=== PATIENT | female | born 2000 | race Two or more races ===

== ENCOUNTER 2020-04-08 17:55 | Inpatient (IN) | payer SELFPAY ==
[~2020-04-08] VITALS: Ht 167.6 cm; Wt 85.5 kg
[2020-04-08] MEDS ORDERED: IV NORMAL SALINE 1000ML BAG 1,000 ML IV SCH (18:03)
--- NOTE | 2020-04-08 18:18 | PHYS DOC ---
General Adult EDM: Chief Complaint: ABDOMINAL PAIN HPI: HPI: Patient is a 20 year old female who presents with 3 days of umbilical abdominal pain that is sharp. States she is also been running a fever off-and-on and taking Tylenol. She last took Tylenol at 1400 today at thousand milligrams. She states the highest her temperature is gone is 101. States she is also having watery diarrhea. She denies seeing blood in her diarrhea. Patient denies vomiting, cough, chest pain, shortness of air, dizziness, syncope, focal weakness, vision changes, numbness or tingling. Currently rates her sharp nonradiating pain a 7 out of 10. She was seen in urgent care prior to coming and they told her to come to the emergency room to be evaluated for appendicitis. Review of Systems: Review of Systems: Constitutional: fever or chills. [] Eyes: Denies change in visual acuity. [] HENT: Denies nasal congestion or sore throat. [] Respiratory: Denies cough or shortness of breath. [] Cardiovascular: Denies chest pain or edema. [] GI: abdominal pain, denies nausea, vomiting, bloody stools. +diarrhea. [] : Denies dysuria. [] Musculoskeletal: Denies back pain or joint pain. [] Integument: Denies rash. [] Neurologic: Denies headache, focal weakness or sensory changes. [] Endocrine: Denies polyuria or polydipsia. [] Lymphatic: Denies swollen glands. [] Psychiatric: Denies depression or anxiety. [] Heart Score: Risk Factors: Risk Factors: DM, Current or recent (<one month) smoker, HTN, HLP, family history of CAD, obesity. Risk Scores: Score 0 - 3: 2.5% MACE over next 6 weeks - Discharge Home Score 4 - 6: 20.3% MACE over next 6 weeks - Admit for Clinical Observation Score 7 - 10: 72.7% MACE over next 6 weeks - Early Invasive Strategies Current Medications: Current Medications Medications (Trade) Dose Ordered Sig/Jef Start Time Stop Time Status Last Admin Dose Admin Sodium Chloride 1,000 ml @ 1,000 mls/hr Q1H 04/08/20 18:03 04/08/20 19:02 UNV Physical Exam: PE: Constitutional: Well developed, well nourished, no acute distress, non-toxic appearance. [] HENT: Normocephalic, atraumatic, bilateral external ears normal, oropharynx moist, no oral exudates, nose normal. [] Eyes: PERRLA, EOMI, conjunctiva normal, no discharge. [] Neck: Normal range of motion, no tenderness, supple, no stridor. [] Cardiovascular:Heart rate regular rhythm, no murmur [] Lungs & Thorax: Bilateral breath sounds clear to auscultation [] Abdomen: Bowel sounds normal, soft, umbilical tenderness, no masses, no pulsatile masses. [] Skin: Warm, dry, no erythema, no rash. [] Back: No tenderness, no CVA tenderness. [] Extremities: No tenderness, no cyanosis, no clubbing, ROM intact, no edema. [] Neurologic: Alert and oriented X 3, normal motor function, normal sensory function, no focal deficits noted. [] Psychologic: Affect normal, judgement normal, mood normal. [] EKG: EKG: [] Radiology/Procedures: Radiology/Procedures: [] Impression: [facility] [address] [place] [address] IMAGING REPORT Signed PATIENT: JONI WYMAN MACCOUNT: [id number] : 2000 LOCATION: ER AGE: 20 SEX: F EXAM STATUS: REG ER ORD. PHYSICIAN: HIREN ALVARADO APRN REASON: diarrhea, abdominal pain PROCEDURE: CT ABD PELV W/ IV CONTRST ONLY EXAM: CT Abdomen and Pelvis with IV contrast CLINICAL HISTORY: diarrhea, abdominal pain COMPARISON: none TECHNIQUE: Helical CT of the abdomen and pelvis was performed following the administration of IV contrast. Axial, coronal and sagittal reformatted images were generated. ---PQRS compliance statement - One or more of the following individualized dose reduction techniques were utilized for this study: 1. Automated exposure control 2. Adjustment of the mA and/or kV according to patient size 3. Use of iterative reconstruction technique--- FINDINGS: Lower chest: Linear opacities right greater than left lower lobes likely scarring/atelectasis. Abdomen and pelvis: Liver and biliary system: No focal liver lesion. Gallbladder is normal. No biliary ductal dilatation. Spleen: Unremarkable Pancreas: Unremarkable Adrenal glands: Unremarkable Kidneys: Symmetric nephrograms. No focal renal lesion. No hydronephrosis. No hydroureter. Lymph nodes/retroperitoneum: No abdominal or pelvic lymphadenopathy. Vessels: Aorta is grossly normal in caliber. Bowel/Peritoneal cavity: No bowel obstruction. There is moderate thickening of several loops of small bowel in the left lower quadrant as well as the sigmoid colon with associated inflammatory changes in the pelvis. These inflammatory changes appear to be centered more caudally in the peritoneal cavity, in the pelvis. IUD is low, tip is likely extending through the internal/external cervical os. The ovaries are not well delineated given associated inflammatory change and pelvic ascites. Appendix measures 6 mm in size. Abdominal wall: Unremarkable Bladder: Partially distended bladder is grossly unremarkable. Bones: No aggressive osseous lesion is seen. Degenerative changes of spine are seen. IMPRESSION: 1. Extensive inflammatory changes are seen within the pelvis with associated thickening of several loops of small bowel and colon within the pelvis. Etiology is unclear and enteritis/colitis are considerations. In addition, given the relatively low appearance of the inflammatory changes, pelvic inflammatory disease is also a primary consideration. The appendix is upper limits normal in caliber although early appendicitis cannot be entirely excluded. 2. The IUD is low, appears to extend through the internal and external cervical os. Electronically signed by: Milton Adams MD (04/08/2020 7:45 PM) [facility] DICTATED and SIGNED BY: MILTON ADAMS MD DATE: 04/08/201944 Course & Med Decision Making: Course & Med Decision Making Pertinent Labs and Imaging studies reviewed. (See chart for details) Umbilical abdominal tenderness but otherwise abdomen is soft. Alert and oriented x4. Ambulatory with steady gait. Skin pink warm and dry. Speaks in full complete sentences. Nothing makes the pain worse or better. IMPRESSION: 1. Extensive inflammatory changes are seen within the pelvis with associated thickening of several loops of small bowel and colon within the pelvis. Etiology is unclear and enteritis/colitis are considerations. In addition, given the relatively low appearance of the inflammatory changes, pelvic inflammatory disease is also a primary consideration. The appendix is upper limits normal in caliber although early appendicitis cannot be entirely excluded. 2. The IUD is low, appears to extend through the internal and external cervical os. Patient has a white count of 18.5. I have started Zosyn on the patient. I have Spoken to Dr Dyer to let him know about CT findings. I will consult GI. Patient admitted to Dr Stacy [] Ana Disclaimer: Ana Disclaimer: This electronic medical record was generated, in whole or in part, using a voice recognition dictation system. Departure Departure Impression: Primary Impression: Colitis Disposition: 09 ADMITTED INPATIENT Admitting Physician: MANNY Condition: STABLE Justicifation of Admission Dx: Justifications for Admission: Justification of Admission Dx: Yes Comments: colitis HIREN ALVARADO TOP LIFTER Apr 08, 2020 18:18
[2020-04-08 18:34] LABS: BASO # 0.1 x10^3/uL (0.0-0.2); BASO % 0 % (0-3); EOS # 0.2 x10^3/uL (0.0-0.7); EOS % 1 % (0-3); HEMATOCRIT 44.3 % (36.0-47.0); LYMPH # 1.5 x10^3/uL (1.0-4.8); LYMPH % 8 % (24-48); MEAN CORPUSCULAR HEMOGLOBIN 29 pg (25-35); MEAN CORPUSCULAR HGB CONC 34 g/dL (31-37); MEAN CORPUSCULAR VOLUME 87 fL (79-100); MONO # 0.9 x10^3/uL (0.0-1.1); MONO % 5 % (0-9); NEUT # 15.7 x10^3/uL (1.8-7.7); NEUT % 86 % (31-73); PLATELET COUNT 353 x10^3/uL (140-400); RED BLOOD COUNT 5.11 x10^6/uL (3.50-5.40); RED CELL DISTRIBUTION WIDTH 14.1 % (11.5-14.5); WHITE BLOOD COUNT 18.3 x10^3/uL (4.0-11.0)
[2020-04-08 18:38] LABS: BILIRUBIN,URINE SMALL (NEG); CLARITY,URINE CLEAR; NITRITE,URINE NEGATIVE (NEG); PROTEIN,URINE 100 mg/dL (NEG-TRACE); UROBILINOGEN,URINE 0.2 mg/dL (0.2 mg/dL)
[2020-04-08 18:44] LABS: PROTHROMBIN TIME PATIENT 13.2 SEC (11.7-14.0)
[2020-04-08 18:48] LABS: BACTERIA,URINE MANY /HPF (0-FEW); COLOR,URINE DK YELLOW; SQUAMOUS EPITHELIAL CELL,UR MANY /LPF
[2020-04-08 18:49] LABS: RBC,URINE 0 /HPF (0-2)
[2020-04-08 18:52] LABS: CALCIUM 9.7 mg/dL (8.5-10.1); CREATININE 0.6 mg/dL (0.6-1.0); GFR 126.2; POTASSIUM 3.9 mmol/L (3.5-5.1)
[2020-04-08 18:56] LABS: ALBUMIN 3.7 g/dL (3.4-5.0); ALBUMIN/GLOBULIN RATIO 0.7 (1.0-1.7); TOTAL BILIRUBIN 0.5 mg/dL (0.2-1.0); TOTAL PROTEIN 8.7 g/dL (6.4-8.2)
[2020-04-08 19:05] LABS: AMPHETAMINE/METHAMPHETAMINE NEG (NEG); BARBITURATES NEG (NEG); BENZODIAZEPINES NEG (NEG); CANNABINOIDS NEG (NEG); COCAINE NEG (NEG); METHADONE NEG (NEG); OPIATES NEG (NEG); PHENCYCLIDINE NEG (NEG)
[2020-04-08] MEDS ORDERED: IOHEXOL 300 MG/ML 100ML VIAL. IV ONE (19:15)
[2020-04-08] MEDS ORDERED: IV NORMAL SALINE 1000ML BAG 1,000 ML IV ONE (19:15)
[2020-04-08 19:30] LABS: % BANDS 6 % (0-9); % BASOS 1 % (0-3); % EOS 1 % (0-5); % LYMPHS 8 % (24-48); % MONOS 4 % (0-10); % SEGS 80 % (35-66)
[2020-04-08] MEDS ORDERED: CONTRAST GIVEN. MC PRN (19:30)
[2020-04-08] MEDS ORDERED: fentaNYL PF VIAL 100 MCG/2 ML VIAL IVP ONE (19:30)
[2020-04-08 19:32] LABS: PLT ESTIMATE ADEQUATE (ADEQUATE)
[2020-04-08 19:33] LABS: TOXIC GRANULATION SLIGHT
--- NOTE | 2020-04-08 19:48 | RAD ---
EXAM: CT Abdomen and Pelvis with IV contrast CLINICAL HISTORY: diarrhea, abdominal pain COMPARISON: none TECHNIQUE: Helical CT of the abdomen and pelvis was performed following the administration of IV contrast. Axial, coronal and sagittal reformatted images were generated. ---PQRS compliance statement - One or more of the following individualized dose reduction techniques were utilized for this study: 1. Automated exposure control 2. Adjustment of the mA and/or kV according to patient size 3. Use of iterative reconstruction technique--- FINDINGS: Lower chest: Linear opacities right greater than left lower lobes likely scarring/atelectasis. Abdomen and pelvis: Liver and biliary system: No focal liver lesion. Gallbladder is normal. No biliary ductal dilatation. Spleen: Unremarkable Pancreas: Unremarkable Adrenal glands: Unremarkable Kidneys: Symmetric nephrograms. No focal renal lesion. No hydronephrosis. No hydroureter. Lymph nodes/retroperitoneum: No abdominal or pelvic lymphadenopathy. Vessels: Aorta is grossly normal in caliber. Bowel/Peritoneal cavity: No bowel obstruction. There is moderate thickening of several loops of small bowel in the left lower quadrant as well as the sigmoid colon with associated inflammatory changes in the pelvis. These inflammatory changes appear to be centered more caudally in the peritoneal cavity, in the pelvis. IUD is low, tip is likely extending through the internal/external cervical os. The ovaries are not well delineated given associated inflammatory change and pelvic ascites. Appendix measures 6 mm in size. Abdominal wall: Unremarkable Bladder: Partially distended bladder is grossly unremarkable. Bones: No aggressive osseous lesion is seen. Degenerative changes of spine are seen. IMPRESSION: 1. Extensive inflammatory changes are seen within the pelvis with associated thickening of several loops of small bowel and colon within the pelvis. Etiology is unclear and enteritis/colitis are considerations. In addition, given the relatively low appearance of the inflammatory changes, pelvic inflammatory disease is also a primary consideration. The appendix is upper limits normal in caliber although early appendicitis cannot be entirely excluded. 2. The IUD is low, appears to extend through the internal and external cervical os. Electronically signed by: Milton Gregg MD (04/08/2020 7:45 PM) [facility]
[2020-04-08] MEDS ORDERED: PIPERACILLIN/TAZOBACTAM 3.375 GM in IV NORMAL SALINE 50ML 50 ML IV ONE (20:15)
[2020-04-08] MEDS ORDERED: ONDANSETRON PF 4 MG/2 ML VIAL. IV PRN (21:00)
[2020-04-08] MEDS: fentaNYL PF VIAL 100 MCG/2 ML VIAL IV PRN (21:10)
[2020-04-08] MEDS: IV NORMAL SALINE 1000ML BAG 1,000 ML IV SCH (21:46)
[2020-04-08 22:15] VITALS: BP 113/66
--- NOTE | 2020-04-08 23:00 | NUR ---
ADMIT NOTE The patient, JONI WYMAN, 20 y/o, F admitted by BOZENA OLIVER MD, was given written information regarding hospital policies, unit procedures and contact persons. Patient afebrile, A&O, and VSS with moderate complaints of pain at admission. Patient orientated to unit, allergies verified and all personal belongings were checked and left in room with patient. Patient's plan of care discussed and admit packet reviewed. Patient remains in bed, call light within reach, and bed in lowest/locked position; no other needs voiced at this time.
[2020-04-09] MEDS: PIPERACILLIN/TAZOBACTAM 3.375 GM in IV NORMAL SALINE 50ML 50 ML IV SCH ×5 (00:15→23:41)
[2020-04-09 03:00] VITALS: BP 108/89
[2020-04-09] MEDS: fentaNYL PF VIAL 100 MCG/2 ML VIAL IV PRN ×2 (03:21→08:37)
[2020-04-09] MEDS: IV NORMAL SALINE 1000ML BAG 1,000 ML IV SCH ×2 (06:05→16:43)
[2020-04-09 07:00] VITALS: BP 107/62
--- NOTE | 2020-04-09 07:57 | PDOC1 ---
History and Physical Date of Service: DOS: DATE: 04/09/20 TIME: 07:52 Chief Complaint: Chief Complain: Abdominal pain History of Present Illness: HPI: Patient is a 20-year-old female with no reported past medical history states that she has had epigastric moderate 5-7 out of 10 nonradiating pain for the past 4 days. Patient also endorses nonbloody diarrhea about 6-7 times per day that is small in volume and mucus. She does not endorse any nausea vomiting, shortness of breath, syncope, dizziness, dysuria, or recent travel. Patient states that she does have a fever that is been on and off and she did take Tylenol that does help with her fevers. She states also when seen this morning that the pain medication does change her pain to intermittent rather than constant that brought her to the hospital initially. Patient was seen initially at urgent care in which they did transfer her to [facility] for further evaluation for possible appendicitis. Past Medical/Surgical History: PMH/PSH: Patient does endorse an IUD placement. No history of Allergies: Allergies: Coded Allergies: No Known Drug Allergies (Unverified , 04/08/20) Family History: Family History: Reviewed and none reported Social History: Social History: Denies alcohol, tobacco, drug abuse Current Medications: Current Medications Current Medications Sodium Chloride 1,000 ml @ 1,000 mls/hr Q1H IV Last administered on 04/08/20at 19:23; Start 04/08/20 at 18:03; Stop 04/08/20 at 19:02; Status DC Sodium Chloride 1,000 ml @ 1,000 mls/hr 1X ONCE IV Last administered on 04/08/20at 20:48; Start 04/08/20 at 19:15; Stop 04/08/20 at 20:14; Status DC Iohexol (Omnipaque 300 Mg/ml) 75 ml 1X ONCE IV Last administered on 04/08/20at 19:20; Start 04/08/20 at 19:15; Stop 04/08/20 at 19:17; Status DC Info (CONTRAST GIVEN -- Rx MONITORING) 1 each PRN DAILY PRN MC SEE COMMENTS; Start 04/08/20 at 19:30; Stop 04/10/20 at 19:29 Fentanyl Citrate (Fentanyl 2ml Vial) 50 mcg 1X ONCE IVP Last administered on 04/08/20at 19:33; Start 04/08/20 at 19:30; Stop 04/08/20 at 19:31; Status DC Piperacillin Sod/ Tazobactam Sod 3.375 gm/Sodium Chloride 50 ml @ 100 mls/hr 1X ONCE IV Last administered on 04/08/20at 20:58; Start 04/08/20 at 20:15; Stop 04/08/20 at 20:44; Status DC Ondansetron HCl (Zofran) 4 mg PRN Q8HRS PRN IV NAUSEA/VOMITING; Start 04/08/20 at 21:00; Stop 04/09/20 at 20:59 Fentanyl Citrate (Fentanyl 2ml Vial) 50 mcg PRN Q1HR PRN IV PAIN Last administered on 04/09/20at 03:21; Start 04/08/20 at 21:00; Stop 04/09/20 at 20:59 Sodium Chloride 1,000 ml @ 100 mls/hr Q10H IV Last administered on 04/09/20at 06:05; Start 04/08/20 at 20:50; Stop 04/09/20 at 20:49 Piperacillin Sod/ Tazobactam Sod 3.375 gm/Sodium Chloride 50 ml @ 100 mls/hr Q6HRS IV Last administered on 04/09/20at 06:04; Start 04/09/20 at 00:00 ROS: Review of Systems Review of System REVIEW OF SYSTEMS: GENERAL: Denies weakness SKIN: No bruising, hair changes or rashes. EYES: No blurred, double or loss of vision. NOSE AND THROAT: No history of nosebleeds, hoarseness or sore throat. HEART: No history of palpitations, chest pain or shortness of breath on exertion. LUNGS: Denies cough, hemoptysis, wheezing or shortness of breath. GASTROINTESTINAL: Denies changes in appetite, nausea, vomiting, diarrhea or constipation. GENITOURINARY: No history of frequency, urgency, hesitancy or nocturia. NEUROLOGIC: Denies history of numbness, tingling, or tremor. PSYCHIATRIC: No history of panic, anxiety or depression. ENDOCRINE: No history of heat or cold intolerance, polyuria or polydipsia. EXTREMITIES: Denies joint pain, pain on walking or stiffness. Physical Exam: Vital Signs: Vital Signs Date Time Temp Pulse Resp B/P (MAP) Pulse Ox O2 Delivery O2 Flow Rate FiO2 04/09/20 07:46 Room Air 04/09/20 03:21 14 04/09/20 03:00 98.2 66 108/89 (95) 99 98.2 Physcial Exam: GEN: No apparent distress. Alert and oriented HEENT: Normal cephalic, atraumatic, external auditory canals are patent EYES: Extraocular muscles are intact, pupil are equally round and reactive to light and accommodation MUSCULOSKELETAL: Well developed , well nourished, good range of motion ENDOCRINE: No thyromegaly was palpated LYMPHATICS: No cervical chain or axillary nodes were noted HEMATOPOIETIC: No bruising NECK: Supple, no JVD, no thyromegaly was noted LUNGS: Clear to auscultation in all lung esquivel without rhonchi or wheezing HEART: RRR, S!, S2 present. Peripheral pulses intact, no obvious murmurs noted ABDOMEN: Soft, nontender. Positive bowel sounds, no organomegaly, normal bowel sounds EXTREMITIES: Without clubbing, cyanosis, or edema. Pedal pulses intact. Negative Homans sign NEUROLOGIC: Normal speech and tone. A&O x 3, moves all extremities, no obvious focal deficits PSYCHIATRIC: Normal affect, normal mood. Stable SKIN: No ulcerations or rashes, good skin turgor, no jaundice VASCULAR: Good capillary refill, neurovascular bundle appears to be intact Labs: Labs: Laboratory Tests Test 04/08/20 18:05 04/08/20 18:20 04/08/20 18:27 04/08/20 20:50 Urine Collection Type Unknown Urine Color Dk yellow Urine Clarity Clear Urine pH 5.0 (<5.0-8.0) Urine Specific [place] 1.025 (1.000-1.030) Urine Protein 100 mg/dL (NEG-TRACE) Urine Glucose (UA) Negative mg/dL (NEG) Urine Ketones (Stick) Trace mg/dL (NEG) Urine Blood Negative (NEG) Urine Nitrite Negative (NEG) Urine Bilirubin Small (NEG) Urine Urobilinogen Dipstick 0.2 mg/dL (0.2 mg/dL) Urine Leukocyte Esterase Small (NEG) Urine RBC 0 /HPF (0-2) Urine WBC 5-10 /HPF (0-4) Urine Squamous Epithelial Cells Many /LPF Urine Bacteria Many /HPF (0-FEW) Urine Mucus Marked /LPF Urine Opiates Screen Neg (NEG) Urine Methadone Screen Neg (NEG) Urine Barbiturates Neg (NEG) Urine Phencyclidine Screen Neg (NEG) Urine Amphetamine/Methamphetamine Neg (NEG) Urine Benzodiazepines Screen Neg (NEG) Urine Cocaine Screen Neg (NEG) Urine Cannabinoids Screen Neg (NEG) Urine Ethyl Alcohol Neg (NEG) White Blood Count 18.3 x10^3/uL (4.0-11.0) Red Blood Count 5.11 x10^6/uL (3.50-5.40) Hemoglobin 15.0 g/dL (12.0-15.5) Hematocrit 44.3 % (36.0-47.0) Mean Corpuscular Volume 87 fL (79-100) Mean Corpuscular Hemoglobin 29 pg (25-35) Mean Corpuscular Hemoglobin Concent 34 g/dL (31-37) Red Cell Distribution Width 14.1 % (11.5-14.5) Platelet Count 353 x10^3/uL (140-400) Neutrophils (%) (Auto) 86 % (31-73) Lymphocytes (%) (Auto) 8 % (24-48) Monocytes (%) (Auto) 5 % (0-9) Eosinophils (%) (Auto) 1 % (0-3) Basophils (%) (Auto) 0 % (0-3) Neutrophils # (Auto) 15.7 x10^3/uL (1.8-7.7) Lymphocytes # (Auto) 1.5 x10^3/uL (1.0-4.8) Monocytes # (Auto) 0.9 x10^3/uL (0.0-1.1) Eosinophils # (Auto) 0.2 x10^3/uL (0.0-0.7) Basophils # (Auto) 0.1 x10^3/uL (0.0-0.2) Segmented Neutrophils % 80 % (35-66) Band Neutrophils % 6 % (0-9) Lymphocytes % 8 % (24-48) Monocytes % 4 % (0-10) Eosinophils % 1 % (0-5) Basophils % 1 % (0-3) Toxic Granulation Slight Platelet Estimate Adequate (ADEQUATE) Prothrombin Time 13.2 SEC (11.7-14.0) Prothromb Time International Ratio 1.0 (0.8-1.1) Sodium Level 139 mmol/L (136-145) Potassium Level 3.9 mmol/L (3.5-5.1) Chloride Level 103 mmol/L (98-107) Carbon Dioxide Level 23 mmol/L (21-32) Anion Gap 13 (6-14) Blood Urea Nitrogen 11 mg/dL (7-20) Creatinine 0.6 mg/dL (0.6-1.0) Estimated GFR (Cockcroft-Gault) 126.2 BUN/Creatinine Ratio 18 (6-20) Glucose Level 111 mg/dL (70-99) Lactic Acid Level 0.9 mmol/L (0.4-2.0) Calcium Level 9.7 mg/dL (8.5-10.1) Total Bilirubin 0.5 mg/dL (0.2-1.0) Aspartate Amino Transf (AST/SGOT) 10 U/L (15-37) Alanine Aminotransferase (ALT/SGPT) 17 U/L (14-59) Alkaline Phosphatase 71 U/L (46-116) Total Protein 8.7 g/dL (6.4-8.2) Albumin 3.7 g/dL (3.4-5.0) Albumin/Globulin Ratio 0.7 (1.0-1.7) Lipase 70 U/L (73-393) Bedside Urine HCG, Qualitative Hcg negative (Negative) SARS-CoV-2 Antigen (Rapid) Negative (NEGATIVE) Laboratory Tests Test 04/08/20 18:05 04/08/20 18:20 04/08/20 18:27 04/08/20 20:50 Urine Collection Type Unknown Urine Color Dk yellow Urine Clarity Clear Urine pH 5.0 (<5.0-8.0) Urine Specific [place] 1.025 (1.000-1.030) Urine Protein 100 mg/dL (NEG-TRACE) Urine Glucose (UA) Negative mg/dL (NEG) Urine Ketones (Stick) Trace mg/dL (NEG) Urine Blood Negative (NEG) Urine Nitrite Negative (NEG) Urine Bilirubin Small (NEG) Urine Urobilinogen Dipstick 0.2 mg/dL (0.2 mg/dL) Urine Leukocyte Esterase Small (NEG) Urine RBC 0 /HPF (0-2) Urine WBC 5-10 /HPF (0-4) Urine Squamous Epithelial Cells Many /LPF Urine Bacteria Many /HPF (0-FEW) Urine Mucus Marked /LPF Urine Opiates Screen Neg (NEG) Urine Methadone Screen Neg (NEG) Urine Barbiturates Neg (NEG) Urine Phencyclidine Screen Neg (NEG) Urine Amphetamine/Methamphetamine Neg (NEG) Urine Benzodiazepines Screen Neg (NEG) Urine Cocaine Screen Neg (NEG) Urine Cannabinoids Screen Neg (NEG) Urine Ethyl Alcohol Neg (NEG) White Blood Count 18.3 x10^3/uL (4.0-11.0) Red Blood Count 5.11 x10^6/uL (3.50-5.40) Hemoglobin 15.0 g/dL (12.0-15.5) Hematocrit 44.3 % (36.0-47.0) Mean Corpuscular Volume 87 fL (79-100) Mean Corpuscular Hemoglobin 29 pg (25-35) Mean Corpuscular Hemoglobin Concent 34 g/dL (31-37) Red Cell Distribution Width 14.1 % (11.5-14.5) Platelet Count 353 x10^3/uL (140-400) Neutrophils (%) (Auto) 86 % (31-73) Lymphocytes (%) (Auto) 8 % (24-48) Monocytes (%) (Auto) 5 % (0-9) Eosinophils (%) (Auto) 1 % (0-3) Basophils (%) (Auto) 0 % (0-3) Neutrophils # (Auto) 15.7 x10^3/uL (1.8-7.7) Lymphocytes # (Auto) 1.5 x10^3/uL (1.0-4.8) Monocytes # (Auto) 0.9 x10^3/uL (0.0-1.1) Eosinophils # (Auto) 0.2 x10^3/uL (0.0-0.7) Basophils # (Auto) 0.1 x10^3/uL (0.0-0.2) Segmented Neutrophils % 80 % (35-66) Band Neutrophils % 6 % (0-9) Lymphocytes % 8 % (24-48) Monocytes % 4 % (0-10) Eosinophils % 1 % (0-5) Basophils % 1 % (0-3) Toxic Granulation Slight Platelet Estimate Adequate (ADEQUATE) Prothrombin Time 13.2 SEC (11.7-14.0) Prothromb Time International Ratio 1.0 (0.8-1.1) Sodium Level 139 mmol/L (136-145) Potassium Level 3.9 mmol/L (3.5-5.1) Chloride Level 103 mmol/L (98-107) Carbon Dioxide Level 23 mmol/L (21-32) Anion Gap 13 (6-14) Blood Urea Nitrogen 11 mg/dL (7-20) Creatinine 0.6 mg/dL (0.6-1.0) Estimated GFR (Cockcroft-Gault) 126.2 BUN/Creatinine Ratio 18 (6-20) Glucose Level 111 mg/dL (70-99) Lactic Acid Level 0.9 mmol/L (0.4-2.0) Calcium Level 9.7 mg/dL (8.5-10.1) Total Bilirubin 0.5 mg/dL (0.2-1.0) Aspartate Amino Transf (AST/SGOT) 10 U/L (15-37) Alanine Aminotransferase (ALT/SGPT) 17 U/L (14-59) Alkaline Phosphatase 71 U/L (46-116) Total Protein 8.7 g/dL (6.4-8.2) Albumin 3.7 g/dL (3.4-5.0) Albumin/Globulin Ratio 0.7 (1.0-1.7) Lipase 70 U/L (73-393) Bedside Urine HCG, Qualitative Hcg negative (Negative) SARS-CoV-2 Antigen (Rapid) Negative (NEGATIVE) Images: Images CT abdomen pelvis IMPRESSION: 1. Extensive inflammatory changes are seen within the pelvis with associated thickening of several loops of small bowel and colon within the pelvis. Etiology is unclear and enteritis/colitis are considerations. In addition, given the relatively low appearance of the inflammatory changes, pelvic inflammatory disease is also a primary consideration. The appendix is upper limits normal in caliber although early appendicitis cannot be entirely excluded. 2. The IUD is low, appears to extend through the internal and external cervical os. Assessment/Plan Assessment/Plan Acute abdominal pain with radiographic evidence of colitis concerning for viral gastroenterocolitis versus subacute early appendicitis Leukocytosis Obesity class I P UI for COVID Admit to medicine for further management Surgery consult GI consult Pending stool studies N.p.o., will advance diet if okay with GI and surgery Continue IV fluids Ambulation for DVT prophylaxis N.p.o. for now Full code Discussed with RN and SW Disposition pending completion of surgery and GI evaluation Surrogate decision maker is undesignated Justifications for Admission Other Justification DANIELA ROSAS MD Apr 09, 2020 07:57
--- NOTE | 2020-04-09 08:50 | PDOC2 ---
CONSULT Date of Consult Date of Consult DATE: 04/09/20 TIME: 08:43 Reason for Consult Reason for Consult: possible appendicitis Referring Physician Referring Physician: ER Identification/Chief Complaint Chief Complaint abdominal pain Source Source: Chart review, Patient History of Present Illness Reason for Visit: 4 days abdominal pain--pain started around umbilical area, now settle to across upper abdomen, she does report radiation to back. Lying flat helps pain. Denies nausea or emesis. Reports 2 days of diarrhea, yesterday over 7 watery stools. + fevers 101. Denies any dysuria or vaginal discharge. No similar symptoms in past. Past Medical History Past Medical History no pertinent hx Past Surgical History Past Surgical History: No pertinent history Family History Family History: Other (noncontributory to current illness ) Social History No ALCOHOL: other (reports drinks moderately, denies daily use ) Drugs: None Lives: with Family Current Problem List Problem List Problems Medical Problems: (1) Colitis Status: Acute Current Medications Current Medications Current Medications Sodium Chloride 1,000 ml @ 1,000 mls/hr Q1H IV Last administered on 04/08/20at 19:23; Start 04/08/20 at 18:03; Stop 04/08/20 at 19:02; Status DC Sodium Chloride 1,000 ml @ 1,000 mls/hr 1X ONCE IV Last administered on 04/08/20at 20:48; Start 04/08/20 at 19:15; Stop 04/08/20 at 20:14; Status DC Iohexol (Omnipaque 300 Mg/ml) 75 ml 1X ONCE IV Last administered on 04/08/20at 19:20; Start 04/08/20 at 19:15; Stop 04/08/20 at 19:17; Status DC Info (CONTRAST GIVEN -- Rx MONITORING) 1 each PRN DAILY PRN MC SEE COMMENTS; Start 04/08/20 at 19:30; Stop 04/10/20 at 19:29 Fentanyl Citrate (Fentanyl 2ml Vial) 50 mcg 1X ONCE IVP Last administered on 04/08/20at 19:33; Start 04/08/20 at 19:30; Stop 04/08/20 at 19:31; Status DC Piperacillin Sod/ Tazobactam Sod 3.375 gm/Sodium Chloride 50 ml @ 100 mls/hr 1X ONCE IV Last administered on 04/08/20at 20:58; Start 04/08/20 at 20:15; Stop 04/08/20 at 20:44; Status DC Ondansetron HCl (Zofran) 4 mg PRN Q8HRS PRN IV NAUSEA/VOMITING; Start 04/08/20 at 21:00; Stop 04/09/20 at 20:59 Fentanyl Citrate (Fentanyl 2ml Vial) 50 mcg PRN Q1HR PRN IV PAIN Last administered on 04/09/20at 08:37; Start 04/08/20 at 21:00; Stop 04/09/20 at 20:59 Sodium Chloride 1,000 ml @ 100 mls/hr Q10H IV Last administered on 04/09/20at 06:05; Start 04/08/20 at 20:50; Stop 04/09/20 at 20:49 Piperacillin Sod/ Tazobactam Sod 3.375 gm/Sodium Chloride 50 ml @ 100 mls/hr Q6HRS IV Last administered on 04/09/20at 06:04; Start 04/09/20 at 00:00 Allergies Allergies: Coded Allergies: No Known Drug Allergies (Unverified , 04/08/20) ROS General: YES: Fatigue, Other (+ fevers ); No: Chills PSYCHOLOGICAL ROS: No: Anxiety, Depression Eyes: No Blurry vision, No Double vision HEENT: No: Heacaches, Sore Throat Hematological and Lymphatic: No: Bleeding Problems, Blood Clots Respiratory: No: Cough, Shortness of breath Cardiovascular: No Chest Pain, No Palpitations Gastrointestinal: Yes Other (see hpi) Genitourinary: No Dysuria, No Hematuria Musculoskeletal: No Joint Pain, No Muscle Pain Neurological: No Impaired Coord/balance, No Numbness/Tingling Skin: No Pruritus, No Rash Physical Exam General: Alert, Oriented X3, Cooperative, No acute distress HEENT: Atraumatic, PERRLA Lungs: Clear to auscultation, Normal air movement Heart: Regular rate, Normal S1, Normal S2 Abdomen: Soft, Other (Pain across upper abdomen, she is nontender to RLQ on exam ) Extremities: No clubbing, No cyanosis Skin: No rashes, No breakdown Neuro: Normal gait, Normal speech Psych/Mental Status: Mental status NL, Mood NL MUSCULOSKELETAL: No deformity, No swelling Vitals VITALS Vital Signs Date Time Temp Pulse Resp B/P (MAP) Pulse Ox O2 Delivery O2 Flow Rate FiO2 04/09/20 08:37 99 Room Air 04/09/20 03:21 14 04/09/20 03:00 98.2 66 108/89 (95) 98.2 Labs Labs Laboratory Tests Test 04/08/20 18:05 04/08/20 18:20 04/08/20 18:27 04/08/20 20:50 Urine Collection Type Unknown Urine Color Dk yellow Urine Clarity Clear Urine pH 5.0 (<5.0-8.0) Urine Specific [place] 1.025 (1.000-1.030) Urine Protein 100 mg/dL (NEG-TRACE) Urine Glucose (UA) Negative mg/dL (NEG) Urine Ketones (Stick) Trace mg/dL (NEG) Urine Blood Negative (NEG) Urine Nitrite Negative (NEG) Urine Bilirubin Small (NEG) Urine Urobilinogen Dipstick 0.2 mg/dL (0.2 mg/dL) Urine Leukocyte Esterase Small (NEG) Urine RBC 0 /HPF (0-2) Urine WBC 5-10 /HPF (0-4) Urine Squamous Epithelial Cells Many /LPF Urine Bacteria Many /HPF (0-FEW) Urine Mucus Marked /LPF Urine Opiates Screen Neg (NEG) Urine Methadone Screen Neg (NEG) Urine Barbiturates Neg (NEG) Urine Phencyclidine Screen Neg (NEG) Urine Amphetamine/Methamphetamine Neg (NEG) Urine Benzodiazepines Screen Neg (NEG) Urine Cocaine Screen Neg (NEG) Urine Cannabinoids Screen Neg (NEG) Urine Ethyl Alcohol Neg (NEG) White Blood Count 18.3 x10^3/uL (4.0-11.0) Red Blood Count 5.11 x10^6/uL (3.50-5.40) Hemoglobin 15.0 g/dL (12.0-15.5) Hematocrit 44.3 % (36.0-47.0) Mean Corpuscular Volume 87 fL (79-100) Mean Corpuscular Hemoglobin 29 pg (25-35) Mean Corpuscular Hemoglobin Concent 34 g/dL (31-37) Red Cell Distribution Width 14.1 % (11.5-14.5) Platelet Count 353 x10^3/uL (140-400) Neutrophils (%) (Auto) 86 % (31-73) Lymphocytes (%) (Auto) 8 % (24-48) Monocytes (%) (Auto) 5 % (0-9) Eosinophils (%) (Auto) 1 % (0-3) Basophils (%) (Auto) 0 % (0-3) Neutrophils # (Auto) 15.7 x10^3/uL (1.8-7.7) Lymphocytes # (Auto) 1.5 x10^3/uL (1.0-4.8) Monocytes # (Auto) 0.9 x10^3/uL (0.0-1.1) Eosinophils # (Auto) 0.2 x10^3/uL (0.0-0.7) Basophils # (Auto) 0.1 x10^3/uL (0.0-0.2) Segmented Neutrophils % 80 % (35-66) Band Neutrophils % 6 % (0-9) Lymphocytes % 8 % (24-48) Monocytes % 4 % (0-10) Eosinophils % 1 % (0-5) Basophils % 1 % (0-3) Toxic Granulation Slight Platelet Estimate Adequate (ADEQUATE) Prothrombin Time 13.2 SEC (11.7-14.0) Prothromb Time International Ratio 1.0 (0.8-1.1) Sodium Level 139 mmol/L (136-145) Potassium Level 3.9 mmol/L (3.5-5.1) Chloride Level 103 mmol/L (98-107) Carbon Dioxide Level 23 mmol/L (21-32) Anion Gap 13 (6-14) Blood Urea Nitrogen 11 mg/dL (7-20) Creatinine 0.6 mg/dL (0.6-1.0) Estimated GFR (Cockcroft-Gault) 126.2 BUN/Creatinine Ratio 18 (6-20) Glucose Level 111 mg/dL (70-99) Lactic Acid Level 0.9 mmol/L (0.4-2.0) Calcium Level 9.7 mg/dL (8.5-10.1) Total Bilirubin 0.5 mg/dL (0.2-1.0) Aspartate Amino Transf (AST/SGOT) 10 U/L (15-37) Alanine Aminotransferase (ALT/SGPT) 17 U/L (14-59) Alkaline Phosphatase 71 U/L (46-116) Total Protein 8.7 g/dL (6.4-8.2) Albumin 3.7 g/dL (3.4-5.0) Albumin/Globulin Ratio 0.7 (1.0-1.7) Lipase 70 U/L (73-393) Bedside Urine HCG, Qualitative Hcg negative (Negative) SARS-CoV-2 Antigen (Rapid) Negative (NEGATIVE) Laboratory Tests Test 04/08/20 18:05 04/08/20 18:20 04/08/20 18:27 04/08/20 20:50 Urine Collection Type Unknown Urine Color Dk yellow Urine Clarity Clear Urine pH 5.0 (<5.0-8.0) Urine Specific [place] 1.025 (1.000-1.030) Urine Protein 100 mg/dL (NEG-TRACE) Urine Glucose (UA) Negative mg/dL (NEG) Urine Ketones (Stick) Trace mg/dL (NEG) Urine Blood Negative (NEG) Urine Nitrite Negative (NEG) Urine Bilirubin Small (NEG) Urine Urobilinogen Dipstick 0.2 mg/dL (0.2 mg/dL) Urine Leukocyte Esterase Small (NEG) Urine RBC 0 /HPF (0-2) Urine WBC 5-10 /HPF (0-4) Urine Squamous Epithelial Cells Many /LPF Urine Bacteria Many /HPF (0-FEW) Urine Mucus Marked /LPF Urine Opiates Screen Neg (NEG) Urine Methadone Screen Neg (NEG) Urine Barbiturates Neg (NEG) Urine Phencyclidine Screen Neg (NEG) Urine Amphetamine/Methamphetamine Neg (NEG) Urine Benzodiazepines Screen Neg (NEG) Urine Cocaine Screen Neg (NEG) Urine Cannabinoids Screen Neg (NEG) Urine Ethyl Alcohol Neg (NEG) White Blood Count 18.3 x10^3/uL (4.0-11.0) Red Blood Count 5.11 x10^6/uL (3.50-5.40) Hemoglobin 15.0 g/dL (12.0-15.5) Hematocrit 44.3 % (36.0-47.0) Mean Corpuscular Volume 87 fL (79-100) Mean Corpuscular Hemoglobin 29 pg (25-35) Mean Corpuscular Hemoglobin Concent 34 g/dL (31-37) Red Cell Distribution Width 14.1 % (11.5-14.5) Platelet Count 353 x10^3/uL (140-400) Neutrophils (%) (Auto) 86 % (31-73) Lymphocytes (%) (Auto) 8 % (24-48) Monocytes (%) (Auto) 5 % (0-9) Eosinophils (%) (Auto) 1 % (0-3) Basophils (%) (Auto) 0 % (0-3) Neutrophils # (Auto) 15.7 x10^3/uL (1.8-7.7) Lymphocytes # (Auto) 1.5 x10^3/uL (1.0-4.8) Monocytes # (Auto) 0.9 x10^3/uL (0.0-1.1) Eosinophils # (Auto) 0.2 x10^3/uL (0.0-0.7) Basophils # (Auto) 0.1 x10^3/uL (0.0-0.2) Segmented Neutrophils % 80 % (35-66) Band Neutrophils % 6 % (0-9) Lymphocytes % 8 % (24-48) Monocytes % 4 % (0-10) Eosinophils % 1 % (0-5) Basophils % 1 % (0-3) Toxic Granulation Slight Platelet Estimate Adequate (ADEQUATE) Prothrombin Time 13.2 SEC (11.7-14.0) Prothromb Time International Ratio 1.0 (0.8-1.1) Sodium Level 139 mmol/L (136-145) Potassium Level 3.9 mmol/L (3.5-5.1) Chloride Level 103 mmol/L (98-107) Carbon Dioxide Level 23 mmol/L (21-32) Anion Gap 13 (6-14) Blood Urea Nitrogen 11 mg/dL (7-20) Creatinine 0.6 mg/dL (0.6-1.0) Estimated GFR (Cockcroft-Gault) 126.2 BUN/Creatinine Ratio 18 (6-20) Glucose Level 111 mg/dL (70-99) Lactic Acid Level 0.9 mmol/L (0.4-2.0) Calcium Level 9.7 mg/dL (8.5-10.1) Total Bilirubin 0.5 mg/dL (0.2-1.0) Aspartate Amino Transf (AST/SGOT) 10 U/L (15-37) Alanine Aminotransferase (ALT/SGPT) 17 U/L (14-59) Alkaline Phosphatase 71 U/L (46-116) Total Protein 8.7 g/dL (6.4-8.2) Albumin 3.7 g/dL (3.4-5.0) Albumin/Globulin Ratio 0.7 (1.0-1.7) Lipase 70 U/L (73-393) Bedside Urine HCG, Qualitative Hcg negative (Negative) SARS-CoV-2 Antigen (Rapid) Negative (NEGATIVE) Assessment/Plan Assessment/Plan abdominal pain diarrhea seems c/w colitis nontender RLQ on exam--seems less likely appendicitis observation will review with PETR Daly APRN Apr 09, 2020 08:50
--- NOTE | 2020-04-09 09:49 | NUR ---
SW following. Discussed with RN, pt from home, room air, clear liquid diet, COVID-19 negative. GI and surgery consulted. Surgery note stating to review with Dr. Dyer. SW will continue to follow for any discharge planning needs. Med Assist following for self pay status.
--- NOTE | 2020-04-09 10:03 | PDOC2 ---
GI CONSULT Date of Service: DATE: 04/09/20 TIME: 10:02 Reason For Consult: colitis, diarrhea HPI: HPI: 20 y/o female admitted through ER, boyfriend present. Ill x 3 days - began at work ([employer]). Walker lightheaded and attributed to heavy period. Then developed pain in "top part" of abdomen - constant and sharp but now better w/ medication. Associated w/ diarrhea (>6 watery stools yesterday, no hematochezia or melena). Also had fever (says 101.8 at home). Hungry this morning. No n/v, reflux/heartburn, dysphagia, chronic abd pain or diarrhea, weight loss, on constipation. No previous EGD or colonoscopy. No GB, liver, pancreas, or PUD history. No NSAIDs. PMH: PMH: anxiety/depression IUD FH: Family History: No pertinent hx (denies GI cancers and IBD) Social History: Smoke: No ALCOHOL: occassional Drugs: None ROS: GEN: Denies fevers, chills, sweats HEENT: Denies blurred vision, sore throat CV: Denies chest pain RESP: Denies shortness of air, cough GI: Per HPI : Denies hematuria, dysuria ENDO: Denies weight changes NEURO: +dizziness MSK: Denies weakness, joint pain/swelling SKIN: Denies jaundice, pruritus Vitals: Vitals: Vital Signs Date Time Temp Pulse Resp B/P (MAP) Pulse Ox O2 Delivery O2 Flow Rate FiO2 04/09/20 09:15 99 Room Air 04/09/20 07:00 98.3 65 20 107/62 (77) 98.3 Labs: Labs: Laboratory Tests Test 04/08/20 18:05 04/08/20 18:20 04/08/20 18:27 04/08/20 20:50 Urine Collection Type Unknown Urine Color Dk yellow Urine Clarity Clear Urine pH 5.0 (<5.0-8.0) Urine Specific [place] 1.025 (1.000-1.030) Urine Protein 100 mg/dL (NEG-TRACE) Urine Glucose (UA) Negative mg/dL (NEG) Urine Ketones (Stick) Trace mg/dL (NEG) Urine Blood Negative (NEG) Urine Nitrite Negative (NEG) Urine Bilirubin Small (NEG) Urine Urobilinogen Dipstick 0.2 mg/dL (0.2 mg/dL) Urine Leukocyte Esterase Small (NEG) Urine RBC 0 /HPF (0-2) Urine WBC 5-10 /HPF (0-4) Urine Squamous Epithelial Cells Many /LPF Urine Bacteria Many /HPF (0-FEW) Urine Mucus Marked /LPF Urine Opiates Screen Neg (NEG) Urine Methadone Screen Neg (NEG) Urine Barbiturates Neg (NEG) Urine Phencyclidine Screen Neg (NEG) Urine Amphetamine/Methamphetamine Neg (NEG) Urine Benzodiazepines Screen Neg (NEG) Urine Cocaine Screen Neg (NEG) Urine Cannabinoids Screen Neg (NEG) Urine Ethyl Alcohol Neg (NEG) White Blood Count 18.3 x10^3/uL (4.0-11.0) Red Blood Count 5.11 x10^6/uL (3.50-5.40) Hemoglobin 15.0 g/dL (12.0-15.5) Hematocrit 44.3 % (36.0-47.0) Mean Corpuscular Volume 87 fL (79-100) Mean Corpuscular Hemoglobin 29 pg (25-35) Mean Corpuscular Hemoglobin Concent 34 g/dL (31-37) Red Cell Distribution Width 14.1 % (11.5-14.5) Platelet Count 353 x10^3/uL (140-400) Neutrophils (%) (Auto) 86 % (31-73) Lymphocytes (%) (Auto) 8 % (24-48) Monocytes (%) (Auto) 5 % (0-9) Eosinophils (%) (Auto) 1 % (0-3) Basophils (%) (Auto) 0 % (0-3) Neutrophils # (Auto) 15.7 x10^3/uL (1.8-7.7) Lymphocytes # (Auto) 1.5 x10^3/uL (1.0-4.8) Monocytes # (Auto) 0.9 x10^3/uL (0.0-1.1) Eosinophils # (Auto) 0.2 x10^3/uL (0.0-0.7) Basophils # (Auto) 0.1 x10^3/uL (0.0-0.2) Segmented Neutrophils % 80 % (35-66) Band Neutrophils % 6 % (0-9) Lymphocytes % 8 % (24-48) Monocytes % 4 % (0-10) Eosinophils % 1 % (0-5) Basophils % 1 % (0-3) Toxic Granulation Slight Platelet Estimate Adequate (ADEQUATE) Prothrombin Time 13.2 SEC (11.7-14.0) Prothromb Time International Ratio 1.0 (0.8-1.1) Sodium Level 139 mmol/L (136-145) Potassium Level 3.9 mmol/L (3.5-5.1) Chloride Level 103 mmol/L (98-107) Carbon Dioxide Level 23 mmol/L (21-32) Anion Gap 13 (6-14) Blood Urea Nitrogen 11 mg/dL (7-20) Creatinine 0.6 mg/dL (0.6-1.0) Estimated GFR (Cockcroft-Gault) 126.2 BUN/Creatinine Ratio 18 (6-20) Glucose Level 111 mg/dL (70-99) Lactic Acid Level 0.9 mmol/L (0.4-2.0) Calcium Level 9.7 mg/dL (8.5-10.1) Total Bilirubin 0.5 mg/dL (0.2-1.0) Aspartate Amino Transf (AST/SGOT) 10 U/L (15-37) Alanine Aminotransferase (ALT/SGPT) 17 U/L (14-59) Alkaline Phosphatase 71 U/L (46-116) Total Protein 8.7 g/dL (6.4-8.2) Albumin 3.7 g/dL (3.4-5.0) Albumin/Globulin Ratio 0.7 (1.0-1.7) Lipase 70 U/L (73-393) Bedside Urine HCG, Qualitative Hcg negative (Negative) SARS-CoV-2 Antigen (Rapid) Negative (NEGATIVE) Allergies: Coded Allergies: No Known Drug Allergies (Unverified , 04/08/20) Medications: Current Medications Medications (Trade) Dose Ordered Sig/Jef Route PRN Reason Start Time Stop Time Status Last Admin Dose Admin Sodium Chloride 1,000 ml @ 1,000 mls/hr Q1H IV 04/08/20 18:03 04/08/20 19:02 DC 04/08/20 19:23 Sodium Chloride 1,000 ml @ 1,000 mls/hr 1X ONCE IV 04/08/20 19:15 04/08/20 20:14 DC 9/9/20 20:48 Iohexol (Omnipaque 300 Mg/ml) 75 ml 1X ONCE IV 04/08/20 19:15 04/08/20 19:17 DC 04/08/20 19:20 Fentanyl Citrate (Fentanyl 2ml Vial) 50 mcg 1X ONCE IVP 04/08/20 19:30 04/08/20 19:31 DC 04/08/20 19:33 Piperacillin Sod/ Tazobactam Sod 3.375 gm/Sodium Chloride 50 ml @ 100 mls/hr 1X ONCE IV 04/08/20 20:15 04/08/20 20:44 DC 04/08/20 20:58 Fentanyl Citrate (Fentanyl 2ml Vial) 50 mcg PRN Q1HR PRN IV PAIN 04/08/20 21:00 04/09/20 20:59 04/09/20 08:37 Sodium Chloride 1,000 ml @ 100 mls/hr Q10H IV 04/08/20 20:50 04/09/20 20:49 04/09/20 06:05 Piperacillin Sod/ Tazobactam Sod 3.375 gm/Sodium Chloride 50 ml @ 100 mls/hr Q6HRS IV 04/09/20 00:00 04/09/20 06:04 Imaging: Imaging: CT A/P IMPRESSION: 1. Extensive inflammatory changes are seen within the pelvis with associated thickening of several loops of small bowel and colon within thepelvis. Etiology is unclear and enteritis/colitis are considerations. In addition, given the relatively low appearance of the inflammatory changes,pelvic inflammatory disease is also a primary consideration. The appendix is upper limits normal in caliber although early appendicitis cannot be entirely excluded. 2. The IUD is low, appears to extend through the internal and external cervical os. PE: GEN: NAD HEENT: Atraumatic, PERRL LUNGS: CTAB HEART: RRR ABD: NABS, S/ND/NT EXTREMITY: No edema SKIN: No rashes, no jaundice NEURO/PSYCH: A & O 3 A/P: A/P: Upper abd pain, diarrhea, fever Leukocytosis Abnormal CT - extensive inflammatory changes are seen within the pelvis with associated thickening of several loops of small bowel and colon within the pelvis, appendix is upper limits normal in caliber CRC screen - average risk -- On IV atbx. Okay w/ GI to try clears, ADAT. Check stool studies. LINDSAY DALLAS Apr 09, 2020 10:03
[2020-04-09 11:00] VITALS: BP 110/60
[2020-04-09 15:00] VITALS: BP 102/60
--- NOTE | 2020-04-09 17:41 | PDOC2 ---
CONSULT Date of Consult Date of Consult DATE: 04/09/20 TIME: 17:39 Reason for Consult Reason for Consult: Possible PID History of Present Illness Reason for Visit: HPI: The pt is a 20y G0 admitted from the ER for abd pain. A couple of days ago the pt developed abd pain at work and almost past out. At that time she thought that the pain was related to her period. When she got home she felt cramping and bloating. Over the night the pain got worse. The pt attempted to go to work the next day, but again had to leave. The pain got worse overnight and the following day she presented to the ER. The pt reported fevers off-and-on and was taking Tylenol. Her highest temp was reported to be 101. She also reported some diarrhea. The pt underwent a CT revealing the followin. Extensive inflammatory changes are seen within the pelvis with associated thickening of several loops of small bowel and colon within the pelvis. Etiology is unclear and enteritis/colitis are considerations. In addition, given the relatively low appearance of the inflammatory changes, pelvic inflammatory disease is also a primary consideration. The appendix is upper limits normal in caliber although early appendicitis cannot be entirely excluded. 2. The IUD is low, appears to extend through the internal and external cervical os. The pt was unaware of the IUD misplacement. 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 This was the first period that she can recall being bad since its placement. The pt feels her pain has improved since admission. PMH: Denies PSH: Denies Meds: None All: NKDA OBHx: G0 Change Advisor: LMP 03/31/20 Mirena 05/2019 9yo / regular SH: no tob, rare EtOH FH: DM, hypercholesterol, HTN, alzheimer's, arthritis Past Surgical History Past Surgical History: No pertinent history Family History Family History: Other (noncontributory to current illness ) Social History No ALCOHOL: occassional Drugs: None Lives: with Family Current Problem List Problem List Problems Medical Problems: (1) Colitis Status: Acute Current Medications Current Medications Current Medications Sodium Chloride 1,000 ml @ 1,000 mls/hr Q1H IV Last administered on 04/08/20at 19:23; Start 04/08/20 at 18:03; Stop 04/08/20 at 19:02; Status DC Sodium Chloride 1,000 ml @ 1,000 mls/hr 1X ONCE IV Last administered on 04/08/20at 20:48; Start 04/08/20 at 19:15; Stop 04/08/20 at 20:14; Status DC Iohexol (Omnipaque 300 Mg/ml) 75 ml 1X ONCE IV Last administered on 04/08/20at 19:20; Start 04/08/20 at 19:15; Stop 04/08/20 at 19:17; Status DC Info (CONTRAST GIVEN -- Rx MONITORING) 1 each PRN DAILY PRN MC SEE COMMENTS; Start 04/08/20 at 19:30; Stop 04/10/20 at 19:29 Fentanyl Citrate (Fentanyl 2ml Vial) 50 mcg 1X ONCE IVP Last administered on 04/08/20at 19:33; Start 04/08/20 at 19:30; Stop 04/08/20 at 19:31; Status DC Piperacillin Sod/ Tazobactam Sod 3.375 gm/Sodium Chloride 50 ml @ 100 mls/hr 1X ONCE IV Last administered on 04/08/20at 20:58; Start 04/08/20 at 20:15; Stop 04/08/20 at 20:44; Status DC Ondansetron HCl (Zofran) 4 mg PRN Q8HRS PRN IV NAUSEA/VOMITING; Start 04/08/20 at 21:00; Stop 04/09/20 at 20:59 Fentanyl Citrate (Fentanyl 2ml Vial) 50 mcg PRN Q1HR PRN IV PAIN Last administered on 04/09/20at 08:37; Start 04/08/20 at 21:00; Stop 04/09/20 at 20:59 Sodium Chloride 1,000 ml @ 100 mls/hr Q10H IV Last administered on 04/09/20at 16:43; Start 04/08/20 at 20:50; Stop 04/09/20 at 20:49 Piperacillin Sod/ Tazobactam Sod 3.375 gm/Sodium Chloride 50 ml @ 100 mls/hr Q6HRS IV Last administered on 04/09/20at 16:42; Start 04/09/20 at 00:00 Allergies Allergies: Coded Allergies: No Known Drug Allergies (Unverified , 04/08/20) Physical Exam General: Alert, Oriented X3, Cooperative, No acute distress HEENT: PERRLA, Mucous membr. moist/pink Lungs: Clear to auscultation, Normal air movement Heart: Regular rate, Normal S1, Normal S2, No murmurs Abdomen: Normal bowel sounds, Soft, No tenderness, No hepatosplenomegaly, No masses Extremities: No clubbing, No cyanosis, No edema, Normal pulses, No tenderness/swelling Skin: No rashes, No breakdown Neuro: Normal gait, Normal speech, Normal tone, Sensation intact, Reflexes 2+ Psych/Mental Status: Mental status NL, Mood NL Vitals VITALS Vital Signs Date Time Temp Pulse Resp B/P (MAP) Pulse Ox O2 Delivery O2 Flow Rate FiO2 04/09/20 15:00 98.0 62 20 102/60 (74) 98 Room Air 98.0 Labs Labs Laboratory Tests Test 04/08/20 18:05 04/08/20 18:20 04/08/20 18:27 04/08/20 20:50 Urine Collection Type Unknown Urine Color Dk yellow Urine Clarity Clear Urine pH 5.0 (<5.0-8.0) Urine Specific [place] 1.025 (1.000-1.030) Urine Protein 100 mg/dL (NEG-TRACE) Urine Glucose (UA) Negative mg/dL (NEG) Urine Ketones (Stick) Trace mg/dL (NEG) Urine Blood Negative (NEG) Urine Nitrite Negative (NEG) Urine Bilirubin Small (NEG) Urine Urobilinogen Dipstick 0.2 mg/dL (0.2 mg/dL) Urine Leukocyte Esterase Small (NEG) Urine RBC 0 /HPF (0-2) Urine WBC 5-10 /HPF (0-4) Urine Squamous Epithelial Cells Many /LPF Urine Bacteria Many /HPF (0-FEW) Urine Mucus Marked /LPF Urine Opiates Screen Neg (NEG) Urine Methadone Screen Neg (NEG) Urine Barbiturates Neg (NEG) Urine Phencyclidine Screen Neg (NEG) Urine Amphetamine/Methamphetamine Neg (NEG) Urine Benzodiazepines Screen Neg (NEG) Urine Cocaine Screen Neg (NEG) Urine Cannabinoids Screen Neg (NEG) Urine Ethyl Alcohol Neg (NEG) White Blood Count 18.3 x10^3/uL (4.0-11.0) Red Blood Count 5.11 x10^6/uL (3.50-5.40) Hemoglobin 15.0 g/dL (12.0-15.5) Hematocrit 44.3 % (36.0-47.0) Mean Corpuscular Volume 87 fL (79-100) Mean Corpuscular Hemoglobin 29 pg (25-35) Mean Corpuscular Hemoglobin Concent 34 g/dL (31-37) Red Cell Distribution Width 14.1 % (11.5-14.5) Platelet Count 353 x10^3/uL (140-400) Neutrophils (%) (Auto) 86 % (31-73) Lymphocytes (%) (Auto) 8 % (24-48) Monocytes (%) (Auto) 5 % (0-9) Eosinophils (%) (Auto) 1 % (0-3) Basophils (%) (Auto) 0 % (0-3) Neutrophils # (Auto) 15.7 x10^3/uL (1.8-7.7) Lymphocytes # (Auto) 1.5 x10^3/uL (1.0-4.8) Monocytes # (Auto) 0.9 x10^3/uL (0.0-1.1) Eosinophils # (Auto) 0.2 x10^3/uL (0.0-0.7) Basophils # (Auto) 0.1 x10^3/uL (0.0-0.2) Segmented Neutrophils % 80 % (35-66) Band Neutrophils % 6 % (0-9) Lymphocytes % 8 % (24-48) Monocytes % 4 % (0-10) Eosinophils % 1 % (0-5) Basophils % 1 % (0-3) Toxic Granulation Slight Platelet Estimate Adequate (ADEQUATE) Prothrombin Time 13.2 SEC (11.7-14.0) Prothromb Time International Ratio 1.0 (0.8-1.1) Sodium Level 139 mmol/L (136-145) Potassium Level 3.9 mmol/L (3.5-5.1) Chloride Level 103 mmol/L (98-107) Carbon Dioxide Level 23 mmol/L (21-32) Anion Gap 13 (6-14) Blood Urea Nitrogen 11 mg/dL (7-20) Creatinine 0.6 mg/dL (0.6-1.0) Estimated GFR (Cockcroft-Gault) 126.2 BUN/Creatinine Ratio 18 (6-20) Glucose Level 111 mg/dL (70-99) Lactic Acid Level 0.9 mmol/L (0.4-2.0) Calcium Level 9.7 mg/dL (8.5-10.1) Total Bilirubin 0.5 mg/dL (0.2-1.0) Aspartate Amino Transf (AST/SGOT) 10 U/L (15-37) Alanine Aminotransferase (ALT/SGPT) 17 U/L (14-59) Alkaline Phosphatase 71 U/L (46-116) Total Protein 8.7 g/dL (6.4-8.2) Albumin 3.7 g/dL (3.4-5.0) Albumin/Globulin Ratio 0.7 (1.0-1.7) Lipase 70 U/L (73-393) Bedside Urine HCG, Qualitative Hcg negative (Negative) SARS-CoV-2 Antigen (Rapid) Negative (NEGATIVE) Laboratory Tests Test 04/08/20 18:05 04/08/20 18:20 04/08/20 18:27 04/08/20 20:50 Urine Collection Type Unknown Urine Color Dk yellow Urine Clarity Clear Urine pH 5.0 (<5.0-8.0) Urine Specific [place] 1.025 (1.000-1.030) Urine Protein 100 mg/dL (NEG-TRACE) Urine Glucose (UA) Negative mg/dL (NEG) Urine Ketones (Stick) Trace mg/dL (NEG) Urine Blood Negative (NEG) Urine Nitrite Negative (NEG) Urine Bilirubin Small (NEG) Urine Urobilinogen Dipstick 0.2 mg/dL (0.2 mg/dL) Urine Leukocyte Esterase Small (NEG) Urine RBC 0 /HPF (0-2) Urine WBC 5-10 /HPF (0-4) Urine Squamous Epithelial Cells Many /LPF Urine Bacteria Many /HPF (0-FEW) Urine Mucus Marked /LPF Urine Opiates Screen Neg (NEG) Urine Methadone Screen Neg (NEG) Urine Barbiturates Neg (NEG) Urine Phencyclidine Screen Neg (NEG) Urine Amphetamine/Methamphetamine Neg (NEG) Urine Benzodiazepines Screen Neg (NEG) Urine Cocaine Screen Neg (NEG) Urine Cannabinoids Screen Neg (NEG) Urine Ethyl Alcohol Neg (NEG) White Blood Count 18.3 x10^3/uL (4.0-11.0) Red Blood Count 5.11 x10^6/uL (3.50-5.40) Hemoglobin 15.0 g/dL (12.0-15.5) Hematocrit 44.3 % (36.0-47.0) Mean Corpuscular Volume 87 fL (79-100) Mean Corpuscular Hemoglobin 29 pg (25-35) Mean Corpuscular Hemoglobin Concent 34 g/dL (31-37) Red Cell Distribution Width 14.1 % (11.5-14.5) Platelet Count 353 x10^3/uL (140-400) Neutrophils (%) (Auto) 86 % (31-73) Lymphocytes (%) (Auto) 8 % (24-48) Monocytes (%) (Auto) 5 % (0-9) Eosinophils (%) (Auto) 1 % (0-3) Basophils (%) (Auto) 0 % (0-3) Neutrophils # (Auto) 15.7 x10^3/uL (1.8-7.7) Lymphocytes # (Auto) 1.5 x10^3/uL (1.0-4.8) Monocytes # (Auto) 0.9 x10^3/uL (0.0-1.1) Eosinophils # (Auto) 0.2 x10^3/uL (0.0-0.7) Basophils # (Auto) 0.1 x10^3/uL (0.0-0.2) Segmented Neutrophils % 80 % (35-66) Band Neutrophils % 6 % (0-9) Lymphocytes % 8 % (24-48) Monocytes % 4 % (0-10) Eosinophils % 1 % (0-5) Basophils % 1 % (0-3) Toxic Granulation Slight Platelet Estimate Adequate (ADEQUATE) Prothrombin Time 13.2 SEC (11.7-14.0) Prothromb Time International Ratio 1.0 (0.8-1.1) Sodium Level 139 mmol/L (136-145) Potassium Level 3.9 mmol/L (3.5-5.1) Chloride Level 103 mmol/L (98-107) Carbon Dioxide Level 23 mmol/L (21-32) Anion Gap 13 (6-14) Blood Urea Nitrogen 11 mg/dL (7-20) Creatinine 0.6 mg/dL (0.6-1.0) Estimated GFR (Cockcroft-Gault) 126.2 BUN/Creatinine Ratio 18 (6-20) Glucose Level 111 mg/dL (70-99) Lactic Acid Level 0.9 mmol/L (0.4-2.0) Calcium Level 9.7 mg/dL (8.5-10.1) Total Bilirubin 0.5 mg/dL (0.2-1.0) Aspartate Amino Transf (AST/SGOT) 10 U/L (15-37) Alanine Aminotransferase (ALT/SGPT) 17 U/L (14-59) Alkaline Phosphatase 71 U/L (46-116) Total Protein 8.7 g/dL (6.4-8.2) Albumin 3.7 g/dL (3.4-5.0) Albumin/Globulin Ratio 0.7 (1.0-1.7) Lipase 70 U/L (73-393) Bedside Urine HCG, Qualitative Hcg negative (Negative) SARS-CoV-2 Antigen (Rapid) Negative (NEGATIVE) Assessment/Plan Assessment/Plan Assessment: 20y G0 admitted for abd pain Recommendations: 1.) Abd pain based on imaging the pain could be colitis vs PID. Pt AF during this admission but reports fever at home. WBD 18.3 on admission. Would obtain a ct/gc (urine). Pt currently on Zosyn. Typical regime for PID would be a second generation Cephalosporin and Doxycycline. Therefore it I would add Doxycycline to the Zosyn. Once pt can be transitioned to oral would place on a 14 day course of Doxycycline. GI and Gen Surg following for colitis tx regime. 2.) Contraception based on imaging concerns that IUD may be in cervical os (misplaced) 3.) Fever covid neg 4.) Will continue to follow MELODY CEE MD Apr 09, 2020 17:41
[2020-04-09 19:00] VITALS: BP 114/77
[2020-04-09] MEDS: LACTOBACILLUS RHAMNOSUS GG 1 CAPSULE. PO SCH (21:37)
[2020-04-09 23:00] VITALS: BP 106/61
[2020-04-09] MEDS: oxyCODONE/APAP 5/325 1 TAB TABLET PO PRN (23:08)
[2020-04-10 03:00] VITALS: BP 110/55
[2020-04-10] MEDS: PIPERACILLIN/TAZOBACTAM 3.375 GM in IV NORMAL SALINE 50ML 50 ML IV SCH ×2 (05:45→12:00)
[2020-04-10 07:00] VITALS: BP 115/68
[2020-04-10] MEDS: LACTOBACILLUS RHAMNOSUS GG 1 CAPSULE. PO SCH (08:37)
--- NOTE | 2020-04-10 09:07 | PDOC ---
SURGICAL PROGRESS NOTE DATE: 04/10/20 TIME: 09:05 Subjective Pain improved less diarrhea no n/v Vital Signs Vital Signs Date Time Temp Pulse Resp B/P (MAP) Pulse Ox O2 Delivery O2 Flow Rate FiO2 04/10/20 08:00 Room Air 04/10/20 07:00 98.0 61 16 115/68 (84) 97 98.0 I&O Intake and Output 04/10/20 07:00 Intake Total 440 ml Balance 440 ml Intake Oral 440 ml # Voids 5 # Bowel Movements 2 General: Alert, Oriented X3, Cooperative Abdomen: Soft, No tenderness Labs Laboratory Tests Test 04/08/20 18:05 04/08/20 18:20 04/08/20 18:27 04/08/20 20:50 Urine Collection Type Unknown Urine Color Dk yellow Urine Clarity Clear Urine pH 5.0 (<5.0-8.0) Urine Specific [place] 1.025 (1.000-1.030) Urine Protein 100 mg/dL (NEG-TRACE) Urine Glucose (UA) Negative mg/dL (NEG) Urine Ketones (Stick) Trace mg/dL (NEG) Urine Blood Negative (NEG) Urine Nitrite Negative (NEG) Urine Bilirubin Small (NEG) Urine Urobilinogen Dipstick 0.2 mg/dL (0.2 mg/dL) Urine Leukocyte Esterase Small (NEG) Urine RBC 0 /HPF (0-2) Urine WBC 5-10 /HPF (0-4) Urine Squamous Epithelial Cells Many /LPF Urine Bacteria Many /HPF (0-FEW) Urine Mucus Marked /LPF Urine Opiates Screen Neg (NEG) Urine Methadone Screen Neg (NEG) Urine Barbiturates Neg (NEG) Urine Phencyclidine Screen Neg (NEG) Urine Amphetamine/Methamphetamine Neg (NEG) Urine Benzodiazepines Screen Neg (NEG) Urine Cocaine Screen Neg (NEG) Urine Cannabinoids Screen Neg (NEG) Urine Ethyl Alcohol Neg (NEG) White Blood Count 18.3 x10^3/uL (4.0-11.0) Red Blood Count 5.11 x10^6/uL (3.50-5.40) Hemoglobin 15.0 g/dL (12.0-15.5) Hematocrit 44.3 % (36.0-47.0) Mean Corpuscular Volume 87 fL (79-100) Mean Corpuscular Hemoglobin 29 pg (25-35) Mean Corpuscular Hemoglobin Concent 34 g/dL (31-37) Red Cell Distribution Width 14.1 % (11.5-14.5) Platelet Count 353 x10^3/uL (140-400) Neutrophils (%) (Auto) 86 % (31-73) Lymphocytes (%) (Auto) 8 % (24-48) Monocytes (%) (Auto) 5 % (0-9) Eosinophils (%) (Auto) 1 % (0-3) Basophils (%) (Auto) 0 % (0-3) Neutrophils # (Auto) 15.7 x10^3/uL (1.8-7.7) Lymphocytes # (Auto) 1.5 x10^3/uL (1.0-4.8) Monocytes # (Auto) 0.9 x10^3/uL (0.0-1.1) Eosinophils # (Auto) 0.2 x10^3/uL (0.0-0.7) Basophils # (Auto) 0.1 x10^3/uL (0.0-0.2) Segmented Neutrophils % 80 % (35-66) Band Neutrophils % 6 % (0-9) Lymphocytes % 8 % (24-48) Monocytes % 4 % (0-10) Eosinophils % 1 % (0-5) Basophils % 1 % (0-3) Toxic Granulation Slight Platelet Estimate Adequate (ADEQUATE) Prothrombin Time 13.2 SEC (11.7-14.0) Prothromb Time International Ratio 1.0 (0.8-1.1) Sodium Level 139 mmol/L (136-145) Potassium Level 3.9 mmol/L (3.5-5.1) Chloride Level 103 mmol/L (98-107) Carbon Dioxide Level 23 mmol/L (21-32) Anion Gap 13 (6-14) Blood Urea Nitrogen 11 mg/dL (7-20) Creatinine 0.6 mg/dL (0.6-1.0) Estimated GFR (Cockcroft-Gault) 126.2 BUN/Creatinine Ratio 18 (6-20) Glucose Level 111 mg/dL (70-99) Lactic Acid Level 0.9 mmol/L (0.4-2.0) Calcium Level 9.7 mg/dL (8.5-10.1) Total Bilirubin 0.5 mg/dL (0.2-1.0) Aspartate Amino Transf (AST/SGOT) 10 U/L (15-37) Alanine Aminotransferase (ALT/SGPT) 17 U/L (14-59) Alkaline Phosphatase 71 U/L (46-116) Total Protein 8.7 g/dL (6.4-8.2) Albumin 3.7 g/dL (3.4-5.0) Albumin/Globulin Ratio 0.7 (1.0-1.7) Lipase 70 U/L (73-393) Bedside Urine HCG, Qualitative Hcg negative (Negative) Coronavirus (PCR) Not detected (Not Detected) SARS-CoV-2 Antigen (Rapid) Negative (NEGATIVE) Test 04/09/20 10:45 Stool Campylobacter PCR Negative (NEGATIVE) Stool E. coli Shiga Toxins (PCR) Negative (NEGATIVE) Stool Salmonella PCR Negative (NEGATIVE) Stool Shigella PCR Negative (NEGATIVE) Clostridium difficile Toxin (PCR) Negative (NEGATIVE) Laboratory Tests Test 04/09/20 10:45 Stool Campylobacter PCR Negative (NEGATIVE) Stool E. coli Shiga Toxins (PCR) Negative (NEGATIVE) Stool Salmonella PCR Negative (NEGATIVE) Stool Shigella PCR Negative (NEGATIVE) Clostridium difficile Toxin (PCR) Negative (NEGATIVE) Problem List Problems Medical Problems: (1) Colitis Status: Acute Assessment/Plan benign abd exam today cbc pending std panel pending no surgical plans Justicifation of Admission Dx: Justifications for Admission: Justification of Admission Dx: Yes PETR HALL APRN Apr 10, 2020 09:07
--- NOTE | 2020-04-10 09:43 | NUR ---
SW following. Discussed with RN, pt from home, room air, regular diet, COVID-19 negative. Pt wanting to discharge home today. Anticipate discharge home today with self care. RN advised no SW needs at this time.
[2020-04-10] MEDS: oxyCODONE/APAP 5/325 1 TAB TABLET PO PRN (09:44)
[2020-04-10 09:45] LABS: BASO % 0 % (0-3); EOS # 0.4 x10^3/uL (0.0-0.7); EOS % 6 % (0-3); HEMATOCRIT 36.8 % (36.0-47.0); HEMOGLOBIN 12.6 g/dL (12.0-15.5); LYMPH # 1.5 x10^3/uL (1.0-4.8); LYMPH % 25 % (24-48); MEAN CORPUSCULAR HEMOGLOBIN 30 pg (25-35); MEAN CORPUSCULAR HGB CONC 34 g/dL (31-37); MEAN CORPUSCULAR VOLUME 87 fL (79-100); MONO # 0.2 x10^3/uL (0.0-1.1); MONO % 3 % (0-9); NEUT % 66 % (31-73); PLATELET COUNT 283 x10^3/uL (140-400); RED BLOOD COUNT 4.22 x10^6/uL (3.50-5.40); RED CELL DISTRIBUTION WIDTH 13.6 % (11.5-14.5); WHITE BLOOD COUNT 6.1 x10^3/uL (4.0-11.0)
--- NOTE | 2020-04-10 09:45 | PDOC ---
Date of Service: DATE: 04/10/20 TIME: 09:42 Subjective: Subjective: Tolerating diet w/ improved abdominal pain and diarrhea, would like to go home. Objective: Vital Signs: Vital Signs Date Time Temp Pulse Resp B/P (MAP) Pulse Ox O2 Delivery O2 Flow Rate FiO2 04/10/20 08:00 Room Air 04/10/20 07:00 98.0 61 16 115/68 (84) 97 98.0 Labs: Laboratory Tests Test 04/09/20 10:45 Stool Campylobacter PCR Negative Stool E. coli Shiga Toxins (PCR) Negative Stool Salmonella PCR Negative Stool Shigella PCR Negative Clostridium difficile Toxin (PCR) Negative PE: GEN: NAD LUNGS: CTAB HEART: RRR ABD: NABS, S/ND/NT NEURO/PSYCH: A & O 3 A/P: Upper abd pain, diarrhea, fever - resolving; stool tests negative Leukocytosis Abnormal CT - enteritis/colitis vs PID, appendix is upper limits normal in caliber, ?misplaced IUD -- CBC and STD check pending. 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 Justicifation of Admission Dx: Justifications for Admission: Justification of Admission Dx: Yes LINDSAY DALLAS Apr 10, 2020 09:45
--- NOTE | 2020-04-10 10:27 | PDOC ---
[facility] PROGRESS NOTE Date of Service: DATE: 04/10/20 TIME: 10:27 Subjective: Pt with improved pain. Discussed outpt regime and IUD. Objective: Vital Signs: Vital Signs Date Time Temp Pulse Resp B/P (MAP) Pulse Ox O2 Delivery O2 Flow Rate FiO2 04/09/20 07:00 98.3 65 20 107/62 (77) 98 Room Air 98.3 Vital Signs Date Time Temp Pulse Resp B/P (MAP) Pulse Ox O2 Delivery O2 Flow Rate FiO2 04/10/20 09:44 Room Air 04/10/20 07:00 98.0 61 16 115/68 (84) 97 98.0 Labs: Laboratory Tests Test 04/09/20 10:45 04/10/20 09:05 Stool Campylobacter PCR Negative (NEGATIVE) Stool E. coli Shiga Toxins (PCR) Negative (NEGATIVE) Stool Salmonella PCR Negative (NEGATIVE) Stool Shigella PCR Negative (NEGATIVE) Clostridioides difficile Toxin (PCR) Negative (NEGATIVE) White Blood Count 6.1 x10^3/uL (4.0-11.0) Red Blood Count 4.22 x10^6/uL (3.50-5.40) Hemoglobin 12.6 g/dL (12.0-15.5) Hematocrit 36.8 % (36.0-47.0) Mean Corpuscular Volume 87 fL (79-100) Mean Corpuscular Hemoglobin 30 pg (25-35) Mean Corpuscular Hemoglobin Concent 34 g/dL (31-37) Red Cell Distribution Width 13.6 % (11.5-14.5) Platelet Count 283 x10^3/uL (140-400) Neutrophils (%) (Auto) 66 % (31-73) Lymphocytes (%) (Auto) 25 % (24-48) Monocytes (%) (Auto) 3 % (0-9) Eosinophils (%) (Auto) 6 % (0-3) H Basophils (%) (Auto) 0 % (0-3) Neutrophils # (Auto) 4.0 x10^3/uL (1.8-7.7) Lymphocytes # (Auto) 1.5 x10^3/uL (1.0-4.8) Monocytes # (Auto) 0.2 x10^3/uL (0.0-1.1) Eosinophils # (Auto) 0.4 x10^3/uL (0.0-0.7) Basophils # (Auto) 0.0 x10^3/uL (0.0-0.2) Laboratory Tests 04/10/20 09:05 Laboratory Tests 04/10/20 09:05 Physical Exam: GENERAL: No apparent distress. Alert and oriented. HEENT: Head normocephalic, atraumatic. NECK: Supple LUNGS: Clear to auscultation. HEART: RRR, S1, S2 present, pulses intact ABDOMEN: Soft, positive bowel sounds. EXTREMITIES: No cyanosis or edema. NEUROLOGIC: Normal speech, normal tone PSYCHIATRIC: Normal affect, normal mood. SKIN: No ulceration. Assessment & Plan: A/P 20y G0 admitted for abd pain 1.) Abd pain improved, colitis vs PID. AF throughout hospitalization. WBC 18.3 -> 6.1. Ct/gc obtained, most likely will not result prior to d/c. Currently on Zosyn. Would transition to PO Doxycycline 100 BID (+/- Flagyl 500 BID) for a 14 day course. 2.) Contraception based on imaging concerns that IUD may be in cervical os (malpositioned). The pt has experience no discomfort since placement in May. She does report they had some difficulty with placement due her uterus being retroverted. Malposition may be associated with an increased risk of contraceptive failure. For women who are asymptomatic but with an incidentally found malpositioned IUD in the uterus that does not extend into the cervix, I would not recommend IUD removal, as the IUD is likely still highly effective based on mechanism of action though further research is needed in this area. Especially since concerns of infection. While the displacement could lessen the contraceptive efficacy, the absolute risk of when a progestin or copper containing IUD is malpositioned within the uterus is not well understood. Additionally, many IUDs in the lower uterine segment will spontaneously move to a proper fundal location over time. Furthermore, given the low rate of highly effective contraception reinitiation after malpositioned IUD removal, removal is associated with a higher rate than retention of malpositioned IUD. 3.) Covid neg 4.) Would have pt f/u in our office in 1-2wks after d/c MELODY CEE MD Apr 10, 2020 10:27
--- NOTE | 2020-04-10 10:40 | DISCH ---
DISCHARGE INSTRUCTIONS Condition on Discharge Condition on Discharge: Stable Activity After Discharge Activity Instructions for Disc: Resume previous activity Exercise Instruction after Dis: Exercise per therapy Weight Bearing Status after Di: Full weight bearing Diet after Discharge Diet after Discharge: GI Soft Contacting the [facility] after DC Call your doctor for: If your condition worsens Follow-Up Follow up with: PCP within 1 week of discharge regarding chlamydia and gonorrhea test Follow Up With: Ccna regarding your IUD and urine test results DANIELA ROSAS MD Apr 10, 2020 10:40
[2020-04-10 11:00] VITALS: BP 117/68
[2020-04-10] MEDS ORDERED: DOXY100C2 PO (11:26)
--- NOTE | 2020-04-10 12:22 | NUR ---
PT DISCHARGED HOME WITH SELF CARE. DISCHARGE INSTRUCTIONS AND PRESCRIPTIONS DISCUSSED. PT VERBALIZED UNDERSTANDING. IV REMOVED. PT AMBULATED TO MAIN ENTRANCE AND WAS SECURED IN CAR WITH FAMILY.
--- NOTE | 2020-04-10 15:19 | PDOC3 ---
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 Patient also endorses nonbloody diarrhea about 6-7 times per day that is small in volume and mucus. She does not endorse any nausea vomiting, shortness of breath, syncope, dizziness, dysuria, or recent travel. Patient states that she does have a fever that is been on and off and she did take Tylenol that does help with her fevers. She states also when seen this morning that the pain medication does change her pain to intermittent rather than constant that brought her to the hospital initially. Patient was seen initially at urgent care in which they did transfer her to [facility] for further evaluation for possible appendicitis. Admitted for further management and evaluation from the specialist. Patient will be kept on PO Doxycycline for 14 days to treat for PID. She will also need to f/u with her urine studies for chlamydia and gonorrhea. Patient was able to tolerated regular food during her stay and her diarrhea improved significantly. The rest of her hospital course was uneventful. Disposition: Disposition/Orders: D/C to Home Activity: Activity: Resume previous activity Diet: Diet: Regular Medications: Home Meds Reported Medications Doxycycline Hyclate (DOXYCYCLINE HYCLATE) 100 Mg Capsule, 1 CAP PO BID for infection, #14 CAP 04/10/20 Scheduled Doxycycline Hyclate (Doxycycline Hyclate), 1 CAP PO BID, (Reported) Total Time: Total Time: Total time spent was 20 minutes in preparing scripts, discharge planning with SW and RN, and preparing this discharge summary. Justicifation of Admission Dx: Justifications for Admission: Justification of Admission Dx: Yes DANIELA ROSAS MD Apr 10, 2020 15:19
== END 2020-04-10 12:28 | disposition home or self-care (01) | DRG 392 ==
LOC: ER 17:55 → 4 NORTH 20:39
PROVIDERS: ADMIT Family Medicine; ATTEND Family Medicine
DX: K52.9 Noninfective gastroenteritis and colitis, unspecified (principal); Z20.828 Contact with and (suspected) exposure to other viral communicable diseases; E66.9 Obesity, unspecified; N73.9 Female pelvic inflammatory disease, unspecified; N92.0 Excessive and frequent menstruation with regular cycle; F41.9 Anxiety disorder, unspecified; F32.9 Major depressive disorder, single episode, unspecified; D72.829 Elevated white blood cell count, unspecified; Z83.3 Family history of diabetes mellitus; Z83.49 Family history of other endocrine, nutritional and metabolic diseases; Z82.49 Family history of ischemic heart disease and other diseases of the circulatory system; Z82.61 Family history of arthritis; Z82.0 Family history of epilepsy and other diseases of the nervous system; Z68.30 Body mass index [BMI] 30.0-30.9, adult
CPT/HCPCS: 36415; 74177; 80053; 80307; 81001; 81025; 83605; 83690; 85007; 85025; 85610; 87086; 87426; 87491; 87493; 87505; 87591; 96361; 96365; 96375; 96376; 99285; J2543; J3010; J7030; Q9967; G0378; U0003-CS

== ENCOUNTER 2020-11-05 18:31 | Emergency (ER) | payer BC ==
[~2020-11-05] VITALS: Ht 165.1 cm; Wt 84.5 kg
[~2020-11-05 18:31] MED LIST: DOXY100C2 PO
[2020-11-05] MEDS ORDERED: HYDROcodone/APAP 5/325MG 1 TAB TABLET PO ONE (19:00)
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
[2020-11-05] MEDS ORDERED: DIPH,PERTUSS(ACELL),TET VAC/PF 0.5 ML SYRINGE. VAX IM ONE (19:30)
[2020-11-05] MEDS ORDERED: NEOM28OI21 TP (19:39)
[2020-11-05] MEDS ORDERED: HYDR-2761 PO (19:48)
[2020-11-05] MEDS ORDERED: NEOMY/BACITR/POLYMYXIN OINT PACKET. TP ONE (20:15)
[2020-11-05 20:20] VITALS: BP 130/80
== END 2020-11-05 20:20 | disposition home or self-care (01) ==
LOC: ER 18:31
DX: T20.26XA Burn of second degree of forehead and cheek, initial encounter (principal); T22.20XA Burn of second degree of shoulder and upper limb, except wrist and hand, unspecified site, initial encounter; T21.11XA Burn of first degree of chest wall, initial encounter; F41.9 Anxiety disorder, unspecified; F32.9 Major depressive disorder, single episode, unspecified; X10.2XXA Contact with fats and cooking oils, initial encounter; Y93.89 Activity, other specified; Y92.89 Other specified places as the place of occurrence of the external cause; Y99.8 Other external cause status
CPT/HCPCS: 16020; 90471; 90715; 99283